=== PATIENT | male | born 2000 | race Caucasian/White ===

== ENCOUNTER 2022-01-22 18:37 | Emergency (ER) | payer OTHER, MEDICAID, SELFPAY ==
[2022-01-22 18:49] VITALS: BP 143/75; PULSE 60; RESP 18; TEMP 36.7; O2SAT 100; BMI 24.1
--- NOTE | 2022-01-22 19:16 | ED_ITS ---
HPI - Neck Pain/Injury General Chief Complaint: Neck Pain/Injury Stated Complaint: Lumps in my throat Time Seen by Provider: 01/22/22 19:06 Source: patient Mode of arrival: Ambulatory Limitations: no limitations History of Present Illness HPI Narrative: 21-year-old male who several months ago noticed a lump in the center of his throat. It was not painful. He saw all a provider where he lives he told him that it was a lymph node and that nothing needed to be done until things worsened. Recently he has noticed some new lumps on each side of his neck. He denies any sore throat. No fevers. No problems breathing. He states that if he does open his mouth far he does get some cramping sensation under his mouth. He also is concerned about thyroid issues as there is a history of thyroid disease in his family. Related Data Allergies Allergy/AdvReac Type Severity Reaction Status Date / Time No Known Drug Allergies Allergy Verified 01/22/22 18:49 Review of Systems Constitutional Constitutional: Reports system reviewed and no additional complaints, except as documented ENT Ears, Nose, Mouth, and Throat: Reports system reviewed and no additional complaints, except as documented and Reports as per HPI Respiratory Respiratory: Reports system reviewed and no additional complaints, except as documented Integumentary/Breasts Skin/Breast: Reports system reviewed and no additional complaints, except as documented Hematologic/Lymphatic On Anticoagulants: No Patient History Medical History Healthy adult Social History Smoking Status: Former smoker Smoking Status: Former smoker Substance Use Type: marijuana Exam Initial Vital Signs Initial Vital Signs: Vital Signs Temperature 98.1 F 01/22/22 18:49 Pulse Rate 60 01/22/22 18:49 Respiratory Rate 18 01/22/22 18:49 Blood Pressure 143/75 H 01/22/22 18:49 Pulse Oximetry 100 01/22/22 18:49 Oxygen Delivery Method 01/22/22 18:49 Const General: cooperative, comfortable and well developed HENWY Head: normal to inspection and normocephalic Ears: TM's normal bilaterally Neck Lymphatic: lymphadenopathy Other: Patient has bilateral subcentimeter soft freely movable lymph nodes in the anterior cervical and submandibular region. Resp Effort & Inspection: normal respiratory effort Auscultation: clear to auscultation bilaterally Skin General: no rashes or lesions noted Neuro General: patient alert, patient awake and moves all extremities Extrem General: normal to inspection Course Orders Ordered: ED Orders 01/22/22 19:49 TSH [Thyroid Stimulating Hormone] Stat Vital Signs Vital signs: Vital Signs - 8 hr 01/22/22 18:49 Temperature 98.1 F Pulse Rate 60 Respiratory Rate 18 Blood Pressure 143/75 H Pulse Oximetry 100 Oxygen Delivery Method Room Air MDM - Neck Pain/Injury Lab Data Labs: Lab Results 01/22/22 Range/Units 19:49 TSH 2.32 (0.47-4.68) uIU/mL MDM Narrative Medical decision making narrative: Physical exam is consistent with bilateral lymphadenopathy of the submandibular and anterior cervical region. No respiratory distress. No sore throat. No problems small week. He does have node that is midline that is most likely a lymph node however he states this is the 1 that is been there for the past wilian ral weeks. His thyroid exam is unremarkable. TSH which was ordered to show that his thyroid function was normal is normal. The note that is midline could potentially be a cyst however there is no radiologic studies that are required in the emergency department. There is no surgical consultation needed. Patient was instructed to contact his primary doctor for follow-up. Discharge Plan Departure Patient Disposition: Home Clinical Impression: Lymphadenopathy Activity Restrictions/Additional Instructions: Recommend that you contact your primary doctor for a follow-up. He no restrictions on your activities. Return to the emergency department for any new or worsening symptoms. Visit Report Forms: Patient Portal/API
[2022-01-22 20:54] LABS: Thyroid Stimulating Hormone 2.32 uIU/mL (0.47-4.68)
== END 2022-01-22 21:06 | disposition home or self-care (01) ==
PROVIDERS: Emergency Provider Emergency Medicine
DX: R59.1 Generalized enlarged lymph nodes (principal)
CPT/HCPCS: 36415; 84443; 99281; 99283